=== PATIENT | female | born 1985 | race African-American/Black ===

== ENCOUNTER 2020-06-21 15:07 | Outpatient (CLI) | payer MEDICAID | END 2020-06-21 15:08 | disposition home or self-care (01) | LOC: BICULT 15:07 | PROVIDERS: ATTEND Nurse Practitioner Women's Health | DX: N92.1 Excessive and frequent menstruation with irregular cycle (principal); N85.2 Hypertrophy of uterus | CPT/HCPCS: 76856; 93976 ==

== ENCOUNTER 2021-03-22 16:56 | Emergency (ER) | payer MEDICAID | END 2021-03-22 18:13 | disposition left against medical advice (07) | LOC: ERS 16:56 | DX: Z53.21 Procedure and treatment not carried out due to patient leaving prior to being seen by health care provider (principal) ==

== ENCOUNTER 2022-12-03 01:46 | Emergency (ER) | payer MEDICAID, SELFPAY ==
[2022-12-03] MEDS ORDERED: Ipratropium/Albuterol 3 ML NEB ONE (01:59)
[2022-12-03] MEDS ORDERED: Albuterol 2.5 MG/0.5 ML NEB ONE ×2 (01:59)
[2022-12-03] MEDS ORDERED: predniSONE 20 MG TAB ONE (02:00)
== END 2022-12-03 02:56 | disposition home or self-care (01) ==
LOC: ERS 01:46
DX: J45.901 Unspecified asthma with (acute) exacerbation (principal)
CPT/HCPCS: 94640; J7512; J7611; J7620

== ENCOUNTER 2025-01-10 13:06 | Emergency (ER) | payer SELFPAY ==
[2025-01-10] MEDS ORDERED: Dexamethasone 10 MG/ML VIAL ONE (13:25)
== END 2025-01-10 14:05 | disposition home or self-care (01) ==
LOC: ERS 13:06
DX: J45.909 Unspecified asthma, uncomplicated (principal)
CPT/HCPCS: J1100